=== PATIENT | male | born 1935 | race Caucasian/White ===

== ENCOUNTER 2018-10-23 10:50 | Emergency (ER) | payer OTHER ==
[2018-10-23] MEDS ORDERED: WATER FOR INJ,STERILE 10 ML ONE (11:52)
[2018-10-23] MEDS ORDERED: CEFTRIAXONE 1000 MG/VIAL ONE (11:52)
[2018-10-23] MEDS ORDERED: SMZ./TMP. 800/160 MG TABLET ONE (11:52)
--- NOTE | 2018-10-23 12:19 | ER ---
Nurse's Notes [facility] Name: Tj Lane Age: 83 yrs Sex: Male : 1935 Arrival Date: 10/23/2018 Time: 10:56 Bed 15 Private MD: Miguelito Whitaker V Diagnosis: Cellulitis of face Presentation: 10/23 11:11 Presenting complaint: Patient states: dental pain and redness/ swelling to R side of ss face that began 2-3 days ago. Transition of care: patient was not received from another setting of care. Onset of symptoms was October 20, 2018. Risk Assessment: Do you want to hurt yourself or someone else? Patient reports no desire to harm self or others. Initial Sepsis Screen: Does the patient have a suspected source of infection? Yes: Other: dental/ skin. Initial Sepsis Screen: Does the patient meet any 2 criteria? No. Patient's initial sepsis screen is negative. Care prior to arrival: None. 11:11 Method Of Arrival: Ambulatory ss 11:11 Acuity: DMITRY 3 ss Triage Assessment: 11:15 Headache History: The patient has had previous headaches and this one is similar to tw2 previous episodes. General: Appears in no apparent distress. slender, well groomed, Behavior is calm, cooperative, appropriate for age. Pain: Complains of pain in face and mouth Pain currently is 8 out of 10 on a pain scale. Pain began 2-3 days ago. Also complains of no other associated symptoms. Neuro: Level of Consciousness is awake, alert, obeys commands, Oriented to person, place, time, situation. Historical: - Allergies: 11:13 No Known Allergies; ss - Immunization history:: Adult Immunizations up to date. - Social history:: Smoking status: Patient/guardian denies using tobacco. - Ebola Screening: : Patient denies exposure to infectious person Patient denies travel to an Ebola-affected area in the 21 days before illness onset. - Family history:: not pertinent. - Hospitalizations: : No recent hospitalization is reported. Screenin:07 Abuse screen: Denies threats or abuse. Nutritional screening: No deficits noted. tw2 Tuberculosis screening: No symptoms or risk factors identified. Fall Risk Secondary diagnosis (15 points) impaired mobility. Assessment: 11:13 Reassessment: provider at bedside at this time. tw2 11:16 General: Appears in no apparent distress. Behavior is calm, cooperative, appropriate tw2 for age. Pain: Complains of pain in mouth face teeth. Neuro: Level of Consciousness is awake, alert, obeys commands, Oriented to person, place, time, situation. Cardiovascular: Heart tones S1 S2 Patient's skin is warm and dry. Respiratory: Airway is patent Respiratory effort is even, unlabored, Respiratory pattern is regular, symmetrical, Breath sounds are clear bilaterally. GI: No signs and/or symptoms were reported involving the gastrointestinal system. Abdomen is flat, non-distended, Bowel sounds present X 4 quads. : No signs and/or symptoms were reported regarding the genitourinary system. EENT: Reports dental pain and face swelling for 3 days now. Derm: No signs and/or symptoms reported regarding the dermatologic system. Musculoskeletal: Range of motion: intact in all extremities. 12:31 Reassessment: Patient appears in no apparent distress at this time. No changes from tw2 previously documented assessment. Patient and/or family updated on plan of care and expected duration. Pain level reassessed. Patient is alert, oriented x 3, equal unlabored respirations, skin warm/dry/pink. Vital Signs: 11:13 BP 135 / 75; Pulse 87; Resp 18; Temp 98.9(O); Pulse Ox 95% on R/A; Weight 72.57 kg; Height 5 ft. 6 in. (167.64 cm); Pain 8/10; 12:31 BP 155 / 71; Pulse 79; Resp 17; Pulse Ox 96% on R/A; tw2 11:13 Body Mass Index 25.82 (72.57 kg, 167.64 cm) ED Course: 10:56 Patient arrived in ED. rg4 10:56 Miguelito Whitaker MD is Private Physician. rg4 11:07 Delmi Trujillo RN is Primary Nurse. tw2 11:07 Arm band placed on. tw2 11:07 Bed in low position. Call light in reach. Adult w/ patient. tw2 11:12 Triage completed. 11:13 Dion Baker MD is Attending Physician. rn 12:18 Miguelito Whitaker MD is Referral Physician. rn 12:32 No provider procedures requiring assistance completed. Patient did not have IV access tw2 during this emergency room visit. Administered Medications: 11:43 Drug: Bactrim (160 mg-800 mg (DS) 1 tablet Route: PO; tw2 12:31 Follow up: Response: No adverse reaction tw2 11:45 Drug: Rocephin (cefTRIAXone) 1 grams Route: IM; Site: left gluteus; tw2 12:31 Follow up: Response: No adverse reaction tw2 Outcome: 12:19 Discharge ordered by . rn 12:32 Discharged to home ambulatory, with significant other. tw2 12:32 Condition: stable 12:32 Discharge instructions given to patient, significant other, Instructed on discharge instructions, follow up and referral plans. no drinking with medication, no driving heavy equipment, medication usage, Demonstrated understanding of instructions, follow-up care, medications, Prescriptions given X 3. 12:32 Patient left the ED. tw2 Signatures: Dion Baker MD MD rn Smirch, Shelby, RN RN ss Wise, Tara, RN RN tw2 Sussy Mackey rg4
--- NOTE | 2018-10-23 12:19 | EDPHYS ---
Physician Documentation [facility] Name: Tj Lane Age: 83 yrs Sex: Male : 1935 Arrival Date: 10/23/2018 Time: 10:56 Bed 15 Private MD: Miguelito Whitaker V ED Physician Dion Baker HPI: 10/23 11:29 This 83 yrs old Male presents to ER via Ambulatory with complaints of fever, rn facial infection. 11:30 the patient presents with a swollen area of the face. Description: erythematous. Onset: rn The symptoms/episode began/occurred 2 day(s) ago. Possible cause(s): unknown. Modifying factors: the symptoms are alleviated by nothing, the symptoms are aggravated by nothing. Severity of symptoms: At their worst the symptoms were mild, in the emergency department the symptoms are unchanged. The patient has not experienced similar symptoms in the past. REports has been having dental problems lately, feels like gums and teeth sore, no trauma, noticed swelling to right face, and subjective fever. . Historical: - Allergies: 11:13 No Known Allergies; ss - Immunization history:: Adult Immunizations up to date. - Social history:: Smoking status: Patient/guardian denies using tobacco. - Ebola Screening: : Patient denies exposure to infectious person Patient denies travel to an Ebola-affected area in the 21 days before illness onset. - Family history:: not pertinent. - Hospitalizations: : No recent hospitalization is reported. ROS: 11:30 Constitutional: + fever Eyes: Negative for injury, pain, redness, and discharge, ENT: + rn right facial swelling and redness, + dental pain Neck: Negative for injury, pain, and swelling, Cardiovascular: Negative for chest pain, palpitations, and edema, Respiratory: Negative for shortness of breath, cough, wheezing, and pleuritic chest pain, Abdomen/GI: Negative for abdominal pain, nausea, vomiting, diarrhea, and constipation, MS/Extremity: Negative for injury and deformity, Neuro: Negative for headache, weakness, numbness, tingling, and seizure. Exam: 11:30 Constitutional: This is a well developed, well nourished patient who is awake, alert, rn and in no acute distress. Head/Face: Normocephalic, + right facial mild swelling and erythema with blanching, no fluctuance, moderate swelling under right eye Eyes: Pupils equal round and reactive to light, extra-ocular motions intact. No pain with EOM. ENT: Nares patent. No nasal discharge, no septal abnormalities noted. Oropharynx with no redness, swelling, or masses, exudates, or evidence of obstruction, uvula midline. Mucous membranes moist. +poor general dentition without obvious focal abscess or swelling. Respiratory: No increased work of breathing, no retractions or nasal flaring. Skin: Warm, dry MS/ Extremity: Pulses equal, no cyanosis. Neurovascular intact. Full, normal range of motion. Equal circumference. Neuro: Awake and alert, GCS 15, oriented to person, place, time, and situation. Cranial nerves II-XII grossly intact. Motor strength 5/5 in all extremities. Sensory grossly intact. Cerebellar exam normal. Normal gait. Vital Signs: 11:13 BP 135 / 75; Pulse 87; Resp 18; Temp 98.9(O); Pulse Ox 95% on R/A; Weight 72.57 kg; ss Height 5 ft. 6 in. (167.64 cm); Pain 8/10; 12:31 BP 155 / 71; Pulse 79; Resp 17; Pulse Ox 96% on R/A; tw2 11:13 Body Mass Index 25.82 (72.57 kg, 167.64 cm) ss MDM: 11:13 Patient medically screened. rn 12:18 Differential diagnosis: cellulitis. Data reviewed: vital signs, nurses notes, and as a rn result, I will discharge patient. Counseling: I had a detailed discussion with the patient and/or guardian regarding: the historical points, exam findings, and any diagnostic results supporting the discharge/admit diagnosis, the need for outpatient follow up, to return to the emergency department if symptoms worsen or persist or if there are any questions or concerns that arise at home. Special discussion: I discussed with the patient/guardian in detail that at this point there is no indication for admission to the hospital. It is understood, however, that if the symptoms persist or worsen the patient needs to return immediately for re-evaluation. Based on the history and exam findings, there is no indication for further emergent testing or inpatient evaluation. I discussed with the patient/guardian the need to see a dentist for further evaluation of the symptoms. Administered Medications: 11:43 Drug: Bactrim (160 mg-800 mg (DS) 1 tablet Route: PO; tw2 12:31 Follow up: Response: No adverse reaction tw2 11:45 Drug: Rocephin (cefTRIAXone) 1 grams Route: IM; Site: left gluteus; tw2 12:31 Follow up: Response: No adverse reaction tw2 Disposition: 10/23/18 12:19 Discharged to Home. Impression: Cellulitis of face. - Condition is Stable. - Discharge Instructions: Cellulitis, Adult, Preseptal Cellulitis, Adult. - Prescriptions for Keflex 500 mg Oral Capsule - take 1 capsule by ORAL route every 8 hours for 10 days; 30 capsule. Tylenol- Codeine #3 300-30 mg Oral Tablet - take 1 tablet by ORAL route every 6 hours As needed; 20 tablet. Bactrim DS 800- 160 mg Oral Tablet - take 1 tablet by ORAL route every 12 hours for 10 days; 20 tablet. - Medication Reconciliation Form, Thank You Letter, Antibiotic Education, Prescription Opioid Use form. - Follow up: Miguelito Whitaker MD; When: As needed; Reason: Recheck today's complaints, Re-evaluation by your physician. - Problem is new. - Symptoms have improved. Signatures: Dion Baker MD MD rn Smirch, Shelby, RN RN Delmi Trujillo RN RN tw2 Corrections: (The following items were deleted from the chart) 12:32 12:19 10/23/2018 12:19 Discharged to Home. Impression: Cellulitis of face. Condition is tw2 Stable. Forms are Medication Reconciliation Form, Thank You Letter, Antibiotic Education, Prescription Opioid Use. Follow up: Miguelito Whitaker; When: As needed; Reason: Recheck today's complaints, Re-evaluation by your physician. Problem is new. Symptoms have improved. rn
== END 2018-10-23 12:32 | disposition home or self-care (01) ==
LOC: ER 10:50
DX: L03.211 Cellulitis of face (principal)
CPT/HCPCS: 96372; 99283

== ENCOUNTER 2022-05-10 23:45 | Inpatient (IN) | payer OTHER ==
[2022-05-11 00:33] LABS: Absolute Lymphocytes (CBC) 1.9 K/uL (0.7-4.9); MCV 82.4 fL (80-100); MPV 8.1 fL (7.6-11.3); RBC Red Blood Cell Count 4.49 M/uL (4.33-5.43)
[2022-05-11] MEDS ORDERED: D10W 250 ML IV ONE ×2 (00:45→03:34)
[2022-05-11 01:05] LABS: Albumin 3.3 g/dL (3.4-5.0); Bilirubin Total 0.2 mg/dL (0.2-1.0); Potassium 3.7 mmol/L (3.5-5.1); Protein, Total 7.2 g/dL (6.4-8.2); Troponin High Sensitivity 29.3 pg/mL (<58.9)
[2022-05-11] MEDS ORDERED: OCTREOTIDE ACETATE 100 MCG/ML ONE (01:20)
[2022-05-11] MEDS ORDERED: D5 0.2 NS 500 ML IV ONE (01:20)
--- NOTE | 2022-05-11 01:56 | ER ---
Nurse's Notes [facility] Name: Tj Lane Age: 87 yrs Sex: Male : 1935 Arrival Date: 05/10/2022 Time: 23:46 Bed 25 Private MD: Diagnosis: Other seizures;Hypoglycemia, unspecified Presentation: 05/10 23:47 Chief complaint: EMS states: they were toned out twice today for hypoglycemia the first bb time pt's BGL in the 40s they gave D10 but then it went down again to 28 they gave D10 again and it went to 179 pt also c/o leg pain. Coronavirus screen: At this time, the client does not indicate any symptoms associated with coronavirus-19. Ebola Screen: No symptoms or risks identified at this time. Initial Sepsis Screen: Does the patient meet any 2 criteria? No. Patient's initial sepsis screen is negative. Does the patient have a suspected source of infection? No. Patient's initial sepsis screen is negative. Risk Assessment: Do you want to hurt yourself or someone else? Patient reports no desire to harm self or others. Onset of symptoms was May 10, 2022. 23:47 Method Of Arrival: EMS: [facility] bb 23:47 Acuity: DMITRY 3 bb 23:53 Care prior to arrival: Medication(s) given: D10 IV initiated. 20 GA, in the left bb forearm. Historical: - Allergies: 23:51 No Known Allergies; bb - Home Meds: 23:51 glimepiride 2 mg Oral tab 1 tab once daily [Active]; amlodipine 10 mg tab 1 tab once bb daily [Active]; lisinopril 20 mg Oral tab 1 tab once daily [Active]; - PMHx: 23:51 Hypertensive disorder; Diabetes mellitus; bb - Immunization history:: Client reports receiving the 2nd dose of the Covid vaccine. - Social history:: Smoking status: Patient denies any tobacco usage or history of. - Family history:: not pertinent. Screenin:50 Abuse screen: Denies threats or abuse. Nutritional screening: No deficits noted. jj7 Tuberculosis screening: No symptoms or risk factors identified. 23:50 [facility] ED Fall Risk Assessment (Adult) History of falling in the last 3 months, jj7 including since admission No falls in past 3 months (0 pts) Confusion or Disorientation Yes (5 pts) Intoxicated or Sedated No (0 pts) Impaired Gait Yes (1 pt) Mobility Assist Device Used No (0 pt) Altered Elimination No (0 pt) Score/Fall Risk Level 3 or more points = High Risk Oriented to surroundings, Maintained a safe environment, Educated pt \T\ family on fall prevention, incl call for assistance when getting out of bed, Assessed \T\ reinforced patient's understanding of fall precautions, Provided non-skid footwear. Assessment: 23:50 General: Appears in no apparent distress. uncomfortable, unkempt, Behavior is calm, jj7 cooperative, appropriate for age. Pain: Complains of pain in right leg and left leg Pain Quality of pain is described as aching, tender. 05/11 00:46 Reassessment: PT HAVING IN BED SHAKING AND APPEARS TO BE HAVING A SZ. MD SPARKLE ramirez INFORMED. BLOOD SUGAR CHECKED AND SHOWS LOW. DEXTROSE 10% GIVEN IV BOLUS IMMEDIATELY. 2 MINUTES LATER PT AWAKE AND SPEAKING. 01:47 Reassessment: PT CONFUSED AND THINKS HE IS AT HOME. CALLING FOR HIS AND SPEAKING j IF HE IS AT HOME. PT REORIENTATED AND INFORMED HE IS AT THE HOSPITAL. PT A\T\OX3. 02:45 Reassessment: PT TRYING TO SLIP OUT THE BED. PT THINKS HE IS AT HOME. PT REORIENTATED [facility] TO HOSPITAL AND READJUSTED IN BED FOR COMFORT. LEGS OF BED RAISED TO PREVENT PT FROM SLIPPING OUT AND FALLING. 03:30 Reassessment: BLOOD GLUCOSE 43. PT IS AWAKE AND TALKING. NO DISTRESS NOTED. MD james VILLAGRAN INFORMED. ORDERS TO INCREASE D5 1/2 NS FROM 75ML/HR TO 150 ML/HR. ORDER TO INFUSE ANOTHER D10 BOLUS. 04:15 Reassessment: BLOOD GLUCOSE 154. [facility] 04:58 Reassessment: PT TRYING TO CLIMB OUT OF THE BED AGAIN. PT READJUSTED IN BED FOR j COMFORT. PT REORIENTED TO HOSPITAL SETTING. 05:10 Reassessment: REPORT GIVEN TO [facility] ICU. [facility] Vital Signs: 05/10 23:47 BP 144 / 90; Pulse 104; Resp 20 S; Temp 98.8(O); Pulse Ox 93% on R/A; Weight 70.76 kg bb (R); Height 5 ft. 7 in. (170.18 cm) (R); Pain 7/10; 05/11 01:13 BP 135 / 86; Pulse 120; Resp 21; Pulse Ox 96% ; jj7 02:17 BP 154 / 84; Pulse 112; Resp 19; Pulse Ox 93% ; Pain 0/10; jj7 03:12 BP 153 / 73; Pulse 104; Resp 17; Pulse Ox 92% ; Pain 0/10; jj7 04:15 BP 130 / 86; Pulse 106; Resp 19; Pulse Ox 91% ; jj7 05:00 BP 133 / 78; Pulse 101; Resp 18; Pulse Ox 93% ; Pain 0/10; jj7 05/10 23:47 Body Mass Index 24.43 (70.76 kg, 170.18 cm) bb ED Course: 05/10 23:46 Patient arrived in ED. bb 23:47 Joselo Villagran MD is Attending Physician. rt 23:50 Patient has correct armband on for positive identification. Bed in low position. Call [facility] light in reach. Side rails up X2. 23:51 Triage completed. bb 23:51 Arm band placed on Patient placed in an exam room, on a stretcher, on pulse oximetry. bb 23:52 Lorna Mcdaniel RN is Primary Nurse. j7 05/11 00:17 Chest Single View XRAY In Process Unspecified. EDMS 00:20 Inserted saline lock: 20 gauge in left forearm, using aseptic technique. jj7 00:26 CMP Sent. jj7 00:26 CBC with Diff Sent. jj7 00:26 Troponin High Sensitivity Sent. jj7 01:12 UA MICROSCOPIC Sent. jj7 01:53 SARS RAPID Sent. la1 01:54 Tomasz Ayon MD is Hospitalizing Provider. rt 03:11 Placed in gown. Seizure precautions initiated. NON SLIP SOCKS APPLIED. jj7 05:45 No provider procedures requiring assistance completed. Patient admitted, IV remains in j7 place. Administered Medications: 01:42 Discontinued: D5 -1/4 NS 1000 ml IV at 75 ml/hr continuous la1 00:46 Drug: D10 in Water [2 mL/kg] 250 ml Route: IVP; Site: left forearm; jj7 01:03 Follow up: Response: Blood sugar is elevated jj7 01:27 Drug: Octreotide 50 mcg Route: Sub-Q; Site: right lower abdomen; jj7 01:27 Drug: D5 -1/4 NS 1000 ml Route: IV; Rate: 75 ml/hr; Site: left forearm; jj7 02:05 Drug: D5-1/2 NS 1000 ml Route: IV; Rate: 75 ml/hr; Site: left forearm; jj7 03:36 Follow up: Rate change 150 ml/hr jj7 03:32 Drug: D10 in Water [4ml/kg] 250 ml Route: IVP; Site: left forearm; jj7 03:54 Follow up: Response: Blood sugar is elevated jj7 03:32 Drug: D5 -1/4 NS 1000 ml Route: IV; Rate: 150 ml/hr; Site: left forearm; jj7 05:45 Follow up: IV Status: Infusion continued upon admission jj7 Medication: 05/10 23:50 VIS not applicable for this client. jj7 Outcome: 05/11 01:55 Decision to Hospitalize by Provider. rt 05:40 Admitted to ICU accompanied by nurse, accompanied by tech, via stretcher, Report called jj7 to [facility] 05:40 Condition: improved 06:01 Patient left the ED. jj7 Signatures: Dispatcher [employer] EDMarianela Shields, RN Anjel Gunter, CHRISTIAN COUNSELOR-C CHRISTIAN COUNSELOR-Shelley1 Lorna Mcdaniel RN RN jj7 Joselo Villagran MD MD rt Corrections: (The following items were deleted from the chart) 02:04 01:57 D5-1/2 NS 1000 ml IV at 75 ml/hr in left forearm la1 la1
--- NOTE | 2022-05-11 01:56 | EDPHYS ---
Physician Documentation [facility] – [place], [place] Name: Tj Lane Age: 87 yrs Sex: Male : 1935 Arrival Date: 05/10/2022 Time: 23:46 Bed 25 Private MD: ED Physician Joselo Almazan HPI: 05/11 01:16 This 87 yrs old Unknown Male presents to ER via EMS with complaints of Hypoglycemia. rt 01:16 Onset: The symptoms/episode began/occurred at an unknown time. Severity of symptoms: At rt their worst the symptoms were severe. Patient with history of diabetes, currently taking a sulfonylurea presents to the ED with hypoglycemia. This causes an altered mental status. EMS ran on the patient twice today, he refused on his initial visit. Denies other aggravating or alleviating factors. States that he ate dinner tonight.. Historical: - Allergies: 05/10 23:51 No Known Allergies; bb - Home Meds: 23:51 glimepiride 2 mg Oral tab 1 tab once daily [Active]; amlodipine 10 mg tab 1 tab once bb daily [Active]; lisinopril 20 mg Oral tab 1 tab once daily [Active]; - PMHx: 23:51 Hypertensive disorder; Diabetes mellitus; bb - Immunization history:: Client reports receiving the 2nd dose of the Covid vaccine. - Social history:: Smoking status: Patient denies any tobacco usage or history of. - Family history:: not pertinent. ROS: 05/11 01:16 Constitutional: Negative for fever, chills, and weight loss, Eyes: Negative for injury, rt pain, redness, and discharge, ENT: Negative for injury, pain, and discharge, Neck: Negative for injury, pain, and swelling, Cardiovascular: Negative for chest pain, palpitations, and edema, Respiratory: Negative for shortness of breath, cough, wheezing, and pleuritic chest pain, Abdomen/GI: Negative for abdominal pain, nausea, vomiting, diarrhea, and constipation, Back: Negative for injury and pain, MS/Extremity: Negative for injury and deformity, Skin: Negative for injury, rash, and discoloration, Neuro: Negative for headache, weakness, numbness, tingling, and seizure, Psych: Negative for depression, anxiety, suicide ideation, homicidal ideation, and hallucinations. Endocrine: Positive for hypoglycemia. Exam: 01:16 Constitutional: This is a well developed, well nourished patient who is awake, alert, rt and in no acute distress. Head/Face: Normocephalic, atraumatic. Eyes: Pupils equal round and reactive to light, extra-ocular motions intact. Lids and lashes normal. Conjunctiva and sclera are non-icteric and not injected. Cornea within normal limits. Periorbital areas with no swelling, redness, or edema. ENT: Nares patent. No nasal discharge, no septal abnormalities noted. Tympanic membranes are normal and external auditory canals are clear. Oropharynx with no redness, swelling, or masses, exudates, or evidence of obstruction, uvula midline. Mucous membranes moist. Neck: Trachea midline, no thyromegaly or masses palpated, and no cervical lymphadenopathy. Supple, full range of motion without nuchal rigidity, or vertebral point tenderness. No Meningismus. Chest/axilla: Normal chest wall appearance and motion. Nontender with no deformity. No lesions are appreciated. Cardiovascular: Regular rate and rhythm with a normal S1 and S2. No gallops, murmurs, or rubs. Normal PMI, no JVD. No pulse deficits. Respiratory: Lungs have equal breath sounds bilaterally, clear to auscultation and percussion. No rales, rhonchi or wheezes noted. No increased work of breathing, no retractions or nasal flaring. Back: No spinal tenderness. No costovertebral tenderness. Full range of motion. Skin: Warm, dry with normal turgor. Normal color with no rashes, no lesions, and no evidence of cellulitis. MS/ Extremity: Pulses equal, no cyanosis. Neurovascular intact. Full, normal range of motion. Neuro: Awake and alert, GCS 15, oriented to person, place, time, and situation. Cranial nerves II-XII grossly intact. Motor strength 5/5 in all extremities. Sensory grossly intact. Cerebellar exam normal. Normal gait. Psych: Awake, alert, with orientation to person, place and time. Behavior, mood, and affect are within normal limits. 01:16 Abdomen/GI: Left inguinal hernia, no abdominal tenderness, easily reducible.. Vital Signs: 05/10 23:47 BP 144 / 90; Pulse 104; Resp 20 S; Temp 98.8(O); Pulse Ox 93% on R/A; Weight 70.76 kg bb (R); Height 5 ft. 7 in. (170.18 cm) (R); Pain 7/10; 05/11 01:13 BP 135 / 86; Pulse 120; Resp 21; Pulse Ox 96% ; jj7 02:17 BP 154 / 84; Pulse 112; Resp 19; Pulse Ox 93% ; Pain 0/10; jj7 03:12 BP 153 / 73; Pulse 104; Resp 17; Pulse Ox 92% ; Pain 0/10; jj7 04:15 BP 130 / 86; Pulse 106; Resp 19; Pulse Ox 91% ; jj7 05:00 BP 133 / 78; Pulse 101; Resp 18; Pulse Ox 93% ; Pain 0/10; jj7 05/10 23:47 Body Mass Index 24.43 (70.76 kg, 170.18 cm) bb MDM: 05/10 23:49 Patient medically screened. rt 05/11 01:19 Differential Diagnosis hypoGlycemia, sepsis. Data reviewed: vital signs, nurses notes, rt lab test result(s), EKG, radiologic studies. ED course: Presents to the ED with recurrent hypoglycemia on a sulfonylurea, no evidence of sepsis, infectious etiology. The patient had a seizure, associated with hypoglycemia, resolving with IV dextrose. The patient has no other significant lab abnormalities, will be admitted for further care.. 02:42 ED course: The phone call to Dr. Whitaker, went straight to voicemail, the mailbox was rt full, unable to leave message, text messages left, will attempt to contact again in the morning.. 05/10 23:59 Order name: CBC with Diff; Complete Time: 01:00 rt 05/10 23:59 Order name: CMP; Complete Time: 01:40 rt 05/10 23:59 Order name: UA MICROSCOPIC; Complete Time: 03:49 rt 05/10 23:59 Order name: Troponin High Sensitivity; Complete Time: 01:40 rt 05/11 00:56 Order name: Glucose, Ancillary Testing; Complete Time: 01:00 EDMS 05/11 01:03 Order name: SARS RAPID; Complete Time: 03:49 la1 05/10 23:59 Order name: Chest Single View XRAY rt 05/11 01:29 Order name: Glucose, Ancillary Testing; Complete Time: 01:40 EDMS 05/11 03:42 Order name: Glucose, Ancillary Testing; Complete Time: 03:49 EDMS 05/11 04:21 Order name: Urine Dipstick-Ancillary; Complete Time: 04:21 EDMS 05/11 04:27 Order name: Glucose, Ancillary Testing; Complete Time: 04:50 EDMS 05/10 23:59 Order name: EKG; Complete Time: 00:00 rt 05/10 23:59 Order name: EKG - Nurse/Tech rt 05/10 23:59 Order name: Urine Dipstick-Ancillary (obtain specimen) rt 05/11 01:02 Order name: Misc. Order: hourly accuchecks la1 05/11 01:02 Order name: Seizure Precautions; Complete Time: 01:11 la1 Administered Medications: 01:42 Discontinued: D5 -1/4 NS 1000 ml IV at 75 ml/hr continuous la1 00:46 Drug: D10 in Water [2 mL/kg] 250 ml Route: IVP; Site: left forearm; jj7 01:03 Follow up: Response: Blood sugar is elevated jj7 01:27 Drug: Octreotide 50 mcg Route: Sub-Q; Site: right lower abdomen; jj7 01:27 Drug: D5 -1/4 NS 1000 ml Route: IV; Rate: 75 ml/hr; Site: left forearm; jj7 02:05 Drug: D5-1/2 NS 1000 ml Route: IV; Rate: 75 ml/hr; Site: left forearm; jj7 03:36 Follow up: Rate change 150 ml/hr jj7 03:32 Drug: D10 in Water [4ml/kg] 250 ml Route: IVP; Site: left forearm; jj7 03:54 Follow up: Response: Blood sugar is elevated jj7 03:32 Drug: D5 -1/4 NS 1000 ml Route: IV; Rate: 150 ml/hr; Site: left forearm; jj7 05:45 Follow up: IV Status: Infusion continued upon admission jj7 Disposition Summary: 05/11/22 01:55 Hospitalization Ordered Hospitalization Status: Inpatient Admission rt Provider: Tomasz Ayon rt Location: Intensive Care Unit rt Condition: Critical rt Problem: new rt Symptoms: have improved rt Bed/Room Type: Standard rt Room Assignment: 8-(05/11/22 04:37) cg Diagnosis - Other seizures rt - Hypoglycemia, unspecified rt Forms: - Medication Reconciliation Form rt - SBAR form rt Critical care time excluding procedures: 01:19 Critical care time: Bedside Care: 30 minutes, Consultation: 5 minutes. Total time: 35 rt minutes Signatures: Dispatcher [employer] Marianela Bobo RN RN bb Attema, Lee, BUSINESS CONTINUITY PLANNING DIRECTOR-C BUSINESS CONTINUITY PLANNING DIRECTOR-Cla1 Richa Mackey RN RN cg Johnson, Juwairiyah, RN RN jj7 Joselo Almazan MD MD rt Corrections: (The following items were deleted from the chart) 04:37 01:55 rt cg
[2022-05-11] MEDS ORDERED: D5 0.45 NS 1,000 ML IV ONE (01:58)
[2022-05-11 02:21] LABS: Calcium Oxalate Crystals- Ur Few /HPF (None Seen); Urine Bacteria <20 /HPF (<20); Urine RBC <5 /HPF (None Seen)
[2022-05-11 02:27] LABS: SARS-CoV-2 Antigen Rapid Res Positive (Negative)
[2022-05-11 04:21] LABS: Urine Blood 1+ (Negative); Urine Glucose Negative (Negative); Urine Protein 3+ (Negative); Urine pH 5.5 (5.0-7.0)
[2022-05-11] MEDS ORDERED: D5.45NS W/KCL 20MEQ 1,000 ML IV SCH (05:29)
[2022-05-11 07:36] LABS: Specific Gravity 1.011 (1.005-1.030); Urine Bacteria None Seen /HPF (<20); Urine Bilirubin NEGATIVE (Negative); Urine Blood 3+ (Negative); Urine Clarity Clear (Clear); Urine Color Colorless (Yellow); Urine Crystals Unidentified Few /HPF (None Seen); Urine Glucose 1+ (Negative); Urine Mucus Slight /HPF (None Seen); Urine Protein 2+ (Negative); Urine RBC <5 /HPF (None Seen); Urine Urobilinogen Normal (Normal); Urine pH 5.5 (5.0-7.0)
[2022-05-11 09:23] LABS: Blood Gas Oxyhemoglobin 84.6 % (94-97); Blood O2 Saturation 85.5 % (92-98.5)
[2022-05-11] MEDS ORDERED: HALOPERIDOL LACT 5 MG/ML INJ IV PRN (12:45)
--- NOTE | 2022-05-11 12:53 | P.HP ---
Certification for Inpatient Patient admitted to: Inpatient With expected LOS: >2 Midnights Practitioner: I am a practitioner with admitting privileges, knowledge of patient current condition, hospital course, and medical plan of care. Services: Services provided to patient in accordance with Admission requirements found in Title 42 Section 412.3 of the Code of Federal Regulations Patient History Date of Service: 05/11/22 Reason for admission: LOW GLUCOSE History of Present Illness: GLUCOSE GOT LOW AND THEY CAME HERE. CONFUSED WITH IT. HE HAD COUGH AND RASPY BREATH 3 DAYS. HE DID NOT EAT WELL FOR 3 DAYS. HE IS AGITATED AND CONFUSED TODAY. HE IS IN ICU. Allergies No Known Allergies Allergy (Verified 08/23/19 12:43) Home medications list reviewed: Yes Home Medications: Amlodipine [Norvasc] 10 mg PO DAILY 09/07/19 Glimepiride 2 mg PO DAILY 07/08/21 Lisinopril [Zestril] 20 mg PO DAILY 07/08/21 - Past Medical/Surgical History Has patient received pneumonia vaccine in the past: Yes Diabetic: Yes -: Neuropathy -: DM -: HTN -: GERD -: Bilateral Blindness -: left heel debridement - Social History Smoking Status: Never smoker Alcohol use: No CD- Drugs: No Caffeine use: Yes Place of Residence: Home Review of Systems 10-point ROS is otherwise unremarkable General: Weakness Physical Examination - Vital Signs Temperature: 99.7 F Blood Pressure: 142/71 Pulse: 85 Respirations: 25 Pulse Ox (%): 96 - Physical Exam General: Oriented x2, Mild distress, Confused HEENT: Atraumatic, PERRLA, Mucous membr. moist/pink, EOMI, Sclerae nonicteric Neck: Supple, 2+ carotid pulse no bruit, No LAD, Without JVD or thyroid abnormality Respiratory: Clear to auscultation bilaterally, Normal air movement Cardiovascular: Regular rate/rhythm, Normal S1 S2 Gastrointestinal: Normal bowel sounds, No tenderness Musculoskeletal: No tenderness Integumentary: No rashes Neurological: Other Lymphatics: No axilla or inguinal lymphadenopathy - Studies Laboratory Data (last 24 hrs) 05/11/22 00:15: Sodium 138, Potassium 3.7, BUN 40 H, Creatinine 1.22, Glucose 23 L*, Total Bilirubin 0.2, AST 44 H, ALT 24, Alkaline Phosphatase 94 05/11/22 00:15: WBC 12.40 H, Hgb 12.3 L, Hct 37.0 L, Plt Count 195 Assessment and Plan - Problems (Diagnosis) (1) COVID Current Visit: Yes Status: Acute Plan: DR. ANTONIO IS CONSULTED. HE WILL DECIDE ON MEDS. (2) Hypoglycemia Current Visit: Yes Status: Acute Plan: CURRENTLY STABLE. (3) Confused Current Visit: Yes Status: Acute Plan: SEEMS FROM VIRAL INFECTION AND BEING IN ICU. ADD THIAMIN DAILY. ADD HALDOL PRN CT CHEST ORDERED TO RULE OUT PNEUMONIA HE IS MILD HYPOXIC. AMS IS FROM ACUTE ILLNESS RELATED DELIRUIM. I CALLED TO EXPLAIN. - Advance Directives Does patient have a Living Will: No Does patient have a Durable POA for Healthcare: No
[2022-05-11] MEDS: D5.45NS W/KCL 20MEQ 1,000 ML IV SCH ×2 (13:00→18:15)
--- NOTE | 2022-05-11 13:35 | RAD REPORT ---
EXAM DESCRIPTION: CT - Chest For Pe Angio - 05/11/2022 1:25 pm CLINICAL HISTORY: HYPOXIA COMPARISON: No comparisons TECHNIQUE: Dynamically enhanced axial 3 mm thick images of the chest were obtained during administra tion of <100> mL Isovue 370 IV contrast. Coronal and oblique reconstruction images were generated and reviewed. Exam utilizes a protocol for optimal evaluation of pulmonary arterial tree. Maximum intensity projections 3D imaging was utilized All CT scans are performed using dose optimization technique as appropriate and may include automated exposure control or mA/KV adjustment according to patient size. FINDINGS: Chest Wall: No suspicious thyroid nodules or pathologic lymphadenopathy. Lungs: Bilateral nodular ground-glass opacities predominantly in the lower lungs bilaterally. Pleura: Small pleural effusions. Mediastinum/yomaira: No pathologic lymphadenopathy. Pulmonary arteries/Aorta: No filling defect identified. No aortic aneurysm. Heart: No significant pericardial effusion. Normal heart size. Multi also coronary artery disease. Upper abdomen: No acute abnormality. Bones: No acute abnormality. IMPRESSION: Negative for pulmonary embolism. Bilateral lower lung airspace disease concerning for br onchopneumonia.
--- NOTE | 2022-05-11 14:12 | RAD REPORT ---
EXAM DESCRIPTION: Chest Single View 05/11/2022 12:23 AM PLATFORM INSPECTOR CLINICAL HISTORY: 87 years, Male, hypoglycemia COMPARISON: None. FINDINGS: Single view of the chest was obtained portable. No prior films are available for compariso n. The cardiomediastinal silhouette demonstrate to be unremarkable. The heart is not enlarged. The th oracic aorta is unremarkable. The pulmonary vasculature is normal distribution. Costophrenic angles a re sharp. No areas of consolidation or masses are seen. The rest of the soft tissue and bony stru ctures demonstrate to be unremarkable. IMPRESSION: No acute cardiopulmonary disease seen. Electronically signed by: George Chaparro MD 05/11/2022 12:23 AM PLATFORM INSPECTOR Due to temporary technical issues with the PACS/Fluency reporting system, reports are being signed by the in house radiologists without review as a courtesy to insure prompt reporting. The interpreting radiologist is fully responsible for the content of the report.
[2022-05-11] MEDS ORDERED: ENOXAPARIN 30 MG/0.3 ML SQ SCH (17:00)
[2022-05-11] MEDS ORDERED: TRAZODONE 50 MG TABLET PO PRN (19:51)
[2022-05-12 05:33] VITALS: BMI 23.6
[2022-05-12] MEDS: CEFTRIAXONE 1,000 MG in NA CHLORIDE 0.9% 50 ML IVPB SCH ×2 (06:35→09:00)
[2022-05-12] MEDS: ACETAMINOPHEN 325 MG TABLET PO PRN ×2 (07:23→14:41)
[2022-05-12] MEDS: AZITHROMYCIN IV 500 MG in NA CHLORIDE 0.9% 250 ML IVPB SCH ×2 (08:25→09:00)
[2022-05-12] MEDS ORDERED: CEFTRIAXONE 1000 MG/VIAL ONE (08:26)
[2022-05-12] MEDS ORDERED: AMLODIPINE 10 MG TAB PO SCH (09:00)
[2022-05-12] MEDS ORDERED: THIAMINE 200 MG/2 ML INJ IVP SCH (09:00)
--- NOTE | 2022-05-12 12:09 | P.CNS ---
Date of Consult: 05/12/22 Reason for Consult: Pneumonia Chief Complaint: Pneumonia History of Present Illness: Patient is 87 years of age admitted to the hospital with bilateral pneumonia having symptoms for the past 3 days cough shortness of breath productive cough tested positive for COVID although he denies any fever prior history of pulmonary problem not smoke Allergies No Known Allergies Allergy (Verified 08/23/19 12:43) Home Medications: Amlodipine [Norvasc*] 10 mg PO DAILY 09/07/19 Amox/Clavulanate [Augmentin 500-125 mg Tab] 500 mg PO BID #14 tab 05/12/22 Quetiapine [Seroquel*] 50 mg PO BEDTIME tab 05/12/22 Repaglinide [Prandin] 0.5 mg PO BID #60 tab 05/12/22 - Past Medical/Surgical History Diabetic: Yes -: Neuropathy -: DM -: HTN -: GERD -: Bilateral Blindness -: left heel debridement - Social History Alcohol use: No CD- Drugs: No Caffeine use: Yes Place of Residence: Home Review of Systems 10-point ROS is otherwise unremarkable General: Weakness Respiratory: Cough, Shortness of Breath Physical Examination Temp Pulse Resp BP Pulse Ox 98.7 F 90 26 H 134/66 99 05/12/22 04:00 05/12/22 07:24 05/12/22 05:00 05/12/22 07:24 05/12/22 05:00 General: Alert, Oriented x3 Respiratory: Clear to auscultation bilaterally, Crackles/rales (Crackles at the bases) Cardiovascular: No edema, Regular rate/rhythm, Normal S1 S2 - Problems (1) Pneumonia Current Visit: Yes Status: Acute Plan: Patient is 87 years of age admitted with bilateral lower lobe pneumonia appears to be consolidation rather than a COVID-pneumonia his white count is elevated start patient on conventional treatment with Rocephin and Zithromax for coronavirus is not indicated at this time is mildly hypoxic patient was hypoglycemic on admission admission is currently doing well hypoglycemia is probably secondary to sulfonylurea Qualifiers: Pneumonia type: due to unspecified organism Lung location: unspecified part of lung
[2022-05-12 12:31] VITALS: TEMP 98.5
--- NOTE | 2022-05-12 12:51 | P.DS ---
Admission Date: 05/11/22 Discharge Date: 05/12/22 Disposition: ROUTINE DISCHARGE Discharge Condition: FAIR Reason for Admission: Pneumonia - Problems (1) COVID Current Visit: Yes Status: Acute (2) Hypoglycemia Current Visit: Yes Status: Acute (3) Confused Current Visit: Yes Status: Acute Brief History of Present Illness: GLUCOSE GOT LOW AND THEY CAME HERE. CONFUSED WITH IT. HE HAD COUGH AND RASPY BREATH 3 DAYS. HE DID NOT EAT WELL FOR 3 DAYS. HE IS AGITATED AND CONFUSED TODAY. HE IS IN ICU. Hospital Course: MR GERBER IS A DIABETIC WHO GOES TO [place] FOR HIS CARE. HE HAD COUGH, VIRAL SYNDROME, DID NOT EAT WELL BUT FAMILY KEPT ON GIVING HIM GLIMERPIDE WITHOUT CHECKING GLUCOSE. THIS IS WHY HIS GLUCOSE DROPPED LOW. HE IS FOUND TO HAVE COVID WITH MILD HYPOXIA. HOSPITAL DOES NOT CARRY ANY COVID RELATED MEDS. I SENT HIM HOME ON MOLNUPIRAVIR PAXLOVID MAY BE HARD TO TOLERATE FOR HIM. I ALSO CHANGED DM MEDS AND EXPLAINED LIKE BEFORE TO FAMILY THAT THEY MUST CHECK GLUCOSE DAILY BEFORE MEDS AND NOT GIVE MEDS IF GLUCOSE IS ALREADY LESS THAN 100 BEFORE FOOD. Vital Signs/Physical Exam: Temp Pulse Resp BP Pulse Ox 98.5 F 72 18 113/55 L 94 05/12/22 12:00 05/12/22 12:00 05/12/22 12:00 05/12/22 12:00 05/12/22 09:00 Laboratory Data at Discharge: WBC 12.40 K/uL (4.3-10.9) H 05/11/22 00:15 Hgb 12.3 g/dL (13.6-17.9) L 05/11/22 00:15 Hct 37.0 % (39.6-49.0) L 05/11/22 00:15 Plt Count 195 K/uL (152-406) 05/11/22 00:15 Sodium 138 mmol/L (136-145) 05/11/22 00:15 Potassium 3.7 mmol/L (3.5-5.1) 05/11/22 00:15 BUN 40 mg/dL (7-18) H 05/11/22 00:15 Creatinine 1.22 mg/dL (0.70-1.30) 05/11/22 00:15 Glucose 23 mg/dL (74-106) L* 05/11/22 00:15 Total Bilirubin 0.2 mg/dL (0.2-1.0) 05/11/22 00:15 AST 44 U/L (15-37) H 05/11/22 00:15 ALT 24 U/L (16-61) 05/11/22 00:15 Alkaline Phosphatase 94 U/L (45-117) 05/11/22 00:15 Home Medications: Amlodipine [Norvasc*] 10 mg PO DAILY 09/07/19 Amox/Clavulanate [Augmentin 500-125 mg Tab] 500 mg PO BID #14 tab 05/12/22 Quetiapine [Seroquel*] 50 mg PO BEDTIME tab 05/12/22 Repaglinide [Prandin] 0.5 mg PO BID #60 tab 05/12/22 New Medications: Amox/Clavulanate [Augmentin 500-125 mg Tab] 500 mg PO BID #14 tab Repaglinide [Prandin] 0.5 mg PO BID #60 tab Followup: Unknown,U [Primary Care Provider] -
[2022-05-12 16:36] VITALS: BP 94/47
[2022-05-12 16:40] VITALS: O2SAT 93
[2022-05-12] MEDS ORDERED: QUETIAPINE 25 MG TAB PO SCH (21:00)
== END 2022-05-12 17:05 | disposition home or self-care (01) | DRG 177 ==
LOC: ER 23:45 → ERHOLD 05-11 02:29 → 3RD-ICU 05-11 04:53
PROVIDERS: ADMIT Internal Medicine; ATTEND Internal Medicine
DX: U07.1 COVID-19 (principal); J18.9 Pneumonia, unspecified organism; G40.89 Other seizures; E11.649 Type 2 diabetes mellitus with hypoglycemia without coma; T38.3X5A Adverse effect of insulin and oral hypoglycemic [antidiabetic] drugs, initial encounter; R09.02 Hypoxemia; E11.40 Type 2 diabetes mellitus with diabetic neuropathy, unspecified; I10 Essential (primary) hypertension; K21.9 Gastro-esophageal reflux disease without esophagitis; H54.7 Unspecified visual loss; Z79.84 Long term (current) use of oral hypoglycemic drugs; Z79.899 Other long term (current) drug therapy
CPT/HCPCS: 36415; 71045; 71275; 80053; 81001; 81003; 81015; 82805; 82947; 84484; 85025; 87040; 87811; 96360; 96361; 96372; 99285; J0456; J1630; J1650; J2354; J3411; J7050; J7799; Q9967

== ENCOUNTER 2022-05-14 11:26 | Observation (INO) | payer OTHER ==
[2022-05-14] MEDS ORDERED: ACETAMINOPHEN 500 MG TAB ONE (11:53)
[2022-05-14] MEDS ORDERED: NA CHLORIDE 0.9% 1,000 ML ONE (11:53)
[2022-05-14] MEDS ORDERED: ONDANSETRON 4 MG/2 ML VIAL ONE (11:53)
[2022-05-14 12:22] LABS: Protime INR 1.23
[2022-05-14 12:28] LABS: Absolute Lymphocytes (CBC) 1.3 K/uL (0.7-4.9); Lymphocytes % 13.8 % (15.3-44.8); MCV 83.1 fL (80-100); MPV 8.5 fL (7.6-11.3)
[2022-05-14 12:34] LABS: Hematocrit 14.9 % (39.6-49.0)
--- NOTE | 2022-05-14 12:37 | RAD REPORT ---
EXAM DESCRIPTION: RAD - Chest Single View - 05/14/2022 12:25 pm CLINICAL HISTORY: SOB COMPARISON: Chest Single View dated 05/11/2022 FINDINGS: Lines: None. Lungs: Developing airspace disease in the medial aspect of the right lung base. Pleural: No significant pleural effusions or pneumothorax. Cardiac: The heart size is within normal limits. Mediastinum: Within normal limits. Bones: No acute fractures. Other: None IMPRESSION: Increasing opacities in the medial right lung base could represent pneumonia or pneumoni tis.
[2022-05-14 12:39] LABS: Bilirubin Total 0.3 mg/dL (0.2-1.0); Potassium 4.4 mmol/L (3.5-5.1); Protein, Total 4.6 g/dL (6.4-8.2); Troponin High Sensitivity 39.3 pg/mL (<58.9)
--- NOTE | 2022-05-14 14:43 | EDPHYS ---
Physician Documentation [facility] Name: Tj Lane Age: 87 yrs Sex: Male : 1935 Arrival Date: 05/14/2022 Time: 11:29 Bed 2 Private MD: ED Physician Genevieve Merino HPI: 05/14 11:40 This 87 yrs old Male presents to ER via EMS with complaints of Bloody Stools. sd2 11:40 87 yo M presents via EMS with CC of vomiting black this AM and prior to that, having an sd2 episode of black stools. States he does not believe he is on any blood thinners and has not had symptoms like this previously. Denies any abdominal pain. Recently diagnosed with COVID. Denies any significant respiratory complaints but was 88% on room air upon arrival improved on 3L NC. . Historical: - Allergies: 11:46 No Known Allergies; ss - Home Meds: 11:46 amlodipine 10 mg tab 1 tab once daily [Active]; glimepiride 2 mg Oral tab 1 tab once ss daily [Active]; lisinopril 20 mg Oral tab 1 tab once daily [Active]; - PMHx: 11:46 diabetes mellitus; Hypertensive disorder; ss - Immunization history:: Client reports receiving the 2nd dose of the Covid vaccine. - Social history:: Smoking status: Patient denies any tobacco usage or history of. ROS: 11:40 Constitutional: Negative for fever, chills, and weight loss, Eyes: Negative for injury, sd2 pain, redness, and discharge, Cardiovascular: Negative for chest pain, palpitations, and edema, Respiratory: Negative for shortness of breath, cough, wheezing. 11:40 : Negative for dysuria, frequency or hematuria. MS/Extremity: Negative for injury and deformity, Skin: Negative for injury, rash, and discoloration. 11:40 Abdomen/GI: Positive for nausea, vomiting, diarrhea, hematemesis, black/tarry stool. Exam: 11:40 Constitutional: This is a well developed, well nourished patient who is awake, alert, sd2 and in no acute distress. Head/Face: Normocephalic, atraumatic. Eyes: EOMI, normal conjunctiva bilaterally Chest/axilla: Normal chest wall appearance and motion. Nontender with no deformity. Cardiovascular: Regular rate and rhythm with a normal S1 and S2. No gallops, murmurs, or rubs. 2+ distal pulses. Respiratory: Lungs have equal breath sounds bilaterally, clear to auscultation and percussion. No rales, rhonchi or wheezes noted. No increased work of breathing, no retractions or nasal flaring. Abdomen/GI: Soft, non-tender, with normal bowel sounds. No guarding or rebound. No evidence of tenderness throughout. Male : Rectal exam performed with household appliance assembler RN at bedside. Mild sacral skin breakdown limited to epidermis only with normal rectal tone, no gross blood but black stool noted in rectal vault. Positive hemoccult. Skin: Warm, dry with normal turgor. Normal color with no rashes, no lesions, and no evidence of cellulitis. MS/ Extremity: Pulses equal, no cyanosis. Neurovascular intact. Full, normal range of motion. Ambulatory without difficulty. Psych: Awake, alert, with orientation to person, place and time. Behavior, mood, and affect are within normal limits. 12:09 ECG was reviewed by the Attending Physician. NSR, rate 83, no STEMI criteria, baseline sd2 artifact present Vital Signs: 11:30 BP 103 / 39; Pulse 85; Resp 19; Temp 99.2; Pulse Ox 89% on R/A; Weight 69.85 kg; Height hb 5 ft. 8 in. (172.72 cm); Pain 2/10; 13:03 BP 108 / 57; Pulse 92; Resp 15; Pulse Ox 99% on 2 lpm NC; hb 13:30 BP 95 / 44; Pulse 80; Resp 17; Pulse Ox 100% on 2 lpm NC; hb 14:19 BP 96 / 44; Pulse 77; Pulse Ox 99% on 2 lpm NC; ko1 14:51 BP 92 / 41; Pulse 80; Resp 15; Pulse Ox 100% on 2 lpm NC; hb 16:03 BP 81 / 38; Pulse 81; Resp 17; Pulse Ox 100% on 3 lpm NC; hb 17:00 BP 104 / 60; Pulse 82; Resp 16; Pulse Ox 99% 3 lpm ; hb 18:45 BP 104 / 44; Pulse 75; Resp 17; Pulse Ox 99% on 3 lpm NC; hb 19:13 BP 112 / 51; Pulse 74; Resp 18 S; Temp 98.2(TE); Pulse Ox 100% on R/A; as6 11:30 Body Mass Index 23.42 (69.85 kg, 172.72 cm) hb MDM: 11:30 Patient medically screened. sd2 11:40 Differential Diagnosis Gastritis, cholecystitis, pancreatitis, SBO, diverticulitis, sd2 kidney stone, appendicitis, UTI, dehydration, electrolyte abnormality among others. Data reviewed: vital signs, nurses notes, EMS record. 14:38 Data reviewed: lab test result(s), EKG, radiologic studies. Counseling: I had a sd2 detailed discussion with the patient and/or guardian regarding: the historical points, exam findings, and any diagnostic results supporting the discharge/admit diagnosis, lab results, radiology results, the need for further work-up and treatment in the hospital. ED course: Labs and imaging reviewed. Significant anemia present and 2u pRBCs ordered with patient and family consent given. COVID pneumonia also present. Discussed with patient and family options regarding transfer for GI services and further care. Family has declined anything invasive including transfer for GI/endoscopy/colonoscopy. They do not believe this would be the patient's wishes. His who is POA has signed to make him DNR and social work consulted for Hospice care which is being arranged. Pt to be admitted to hospital while hospice plan is arranged for safe discharge home.. 05/14 11:43 Order name: CBC with Diff; Complete Time: 12:37 sd2 05/14 11:43 Order name: CMP; Complete Time: 12:49 sd2 05/14 11:43 Order name: PT-INR; Complete Time: 12:37 sd2 05/14 11:43 Order name: Ptt, Activated; Complete Time: 12:37 sd2 05/14 11:43 Order name: Lipase; Complete Time: 12:49 sd2 05/14 11:43 Order name: Troponin High Sensitivity; Complete Time: 12:49 sd2 05/14 11:43 Order name: BNP; Complete Time: 12:49 sd2 05/14 11:43 Order name: XRAY Chest (1 view); Complete Time: 12:49 sd2 05/14 11:44 Order name: Type And Screen 05/14 11:44 Order name: SARS-COV-2 Antigen Rapid 1 05/14 13:03 Order name: Bb Add On 1 05/14 13:07 Order name: Packed RBC Leukored EDCO 05/14 14:06 Order name: ABO/RH no charge; Complete Time: 14:08 EDMS 05/14 11:43 Order name: EKG - Nurse/Tech; Complete Time: 11:54 sd2 05/14 12:10 Order name: Social Service Consult EDCO 05/14 13:15 Order name: Labs - recollect needed: recollect BB; Complete Time: 14:06 05/14 16:47 Order name: Regular EDMS Administered Medications: 12:19 Drug: NS 0.9% 1000 ml Route: IV; Rate: 1 bolus; Site: right antecubital; hb 20:39 Follow up: Response: No adverse reaction; IV Status: Completed infusion; IV Intake: as6 1000ml 12:19 Drug: Tylenol 1000 mg Route: PO; hb 20:39 Follow up: Response: No adverse reaction as6 12:19 Drug: Zofran (Ondansetron) 4 mg Route: IVP; Site: right antecubital; hb 20:39 Follow up: Response: No adverse reaction as6 Disposition Summary: 05/14/22 14:42 Hospitalization Ordered Hospitalization Status: Inpatient Admission sd2 Provider: Aurelia Park2 Location: Telemetry/MedSur (Inpatient) sd2 Condition: Stable sd2 Problem: new sd2 Symptoms: are unchanged sd2 Bed/Room Type: Standard sd2 Room Assignment: 222(05/14/22 19:43) dw Diagnosis - Gastrointestinal bleeding sd2 - Melena sd2 - Hematemesis sd2 - Severe anemia sd2 - Pneumonia secondary to COVID-19 infection sd2 - Acute respiratory failure with hypoxia secondary to COVID-19 sd2 Forms: - Medication Reconciliation Form sd2 - SBAR form sd2 Critical care time excluding procedures: 14:38 Critical care time: Bedside Care: 30 minutes, Consultation: 5 minutes, Family sd2 Intervention: 15 minutes. Total time: 50 minutes Signatures: Dispatcher [employer] EDCO Kim Rain RN RN dw Smirch, Shelby, RN RN ss Baxter, Heather, RN RN hb Dunlop, Stephanie, MD MD sd2 Mary Carmen Neumann RN RN ko1 Slawson, Ashby RN as6 Corrections: (The following items were deleted from the chart) 19:43 14:42 sd2 dw
--- NOTE | 2022-05-14 14:43 | ER ---
Nurse's Notes [facility] Name: jT Lane Age: 87 yrs Sex: Male : 1935 Arrival Date: 05/14/2022 Time: 11:29 Bed 2 Private MD: Diagnosis: Gastrointestinal bleeding;Melena;Hematemesis;Severe anemia;Pneumonia secondary to COVID-19 infection;Acute respiratory failure with hypoxia secondary to COVID-19 Presentation: 05/14 11:30 Chief complaint: EMS states: COVID +, family reports coffee ground emesis and dark hb tarry stools today. Coronavirus screen: Client presents with at least one sign or symptom that may indicate coronavirus-19. Standard/surgical mask placed on the client. Provider contacted for isolation considerations. Ebola Screen: No symptoms or risks identified at this time. Initial Sepsis Screen: Does the patient meet any 2 criteria? No. Patient's initial sepsis screen is negative. Does the patient have a suspected source of infection? No. Patient's initial sepsis screen is negative. Risk Assessment: Do you want to hurt yourself or someone else? Patient reports no desire to harm self or others. Onset of symptoms was May 14, 2022. 11:30 Method Of Arrival: EMS: [facility] hb 11:30 Acuity: DMITRY 2 hb Historical: - Allergies: 11:46 No Known Allergies; ss - Home Meds: 11:46 amlodipine 10 mg tab 1 tab once daily [Active]; glimepiride 2 mg Oral tab 1 tab once ss daily [Active]; lisinopril 20 mg Oral tab 1 tab once daily [Active]; - PMHx: 11:46 diabetes mellitus; Hypertensive disorder; ss - Immunization history:: Client reports receiving the 2nd dose of the Covid vaccine. - Social history:: Smoking status: Patient denies any tobacco usage or history of. Screenin:30 [facility] ED Fall Risk Assessment (Adult) History of falling in the last 3 months, ko1 including since admission No falls in past 3 months (0 pts) Confusion or Disorientation No (0 pts) Intoxicated or Sedated No (0 pts) Impaired Gait No (0 pts) Mobility Assist Device Used No (0 pt) Altered Elimination No (0 pt) Score/Fall Risk Level 0 - 2 = Low Risk Oriented to surroundings, Maintained a safe environment, Educated pt \T\ family on fall prevention, incl call for assistance when getting out of bed, Assessed \T\ reinforced patient's understanding of fall precautions, Provided non-skid footwear, Hourly rounding (assess needs \T\ fall precautionary measures) done, Used ambulatory aids as needed (educated on \T\ assisted with), Used gait belt as appropriate. Abuse screen: Denies threats or abuse. Denies injuries from another. Nutritional screening: No deficits noted. Tuberculosis screening: No symptoms or risk factors identified. Assessment: 11:30 Pain: Complains of pain in generalized. Neuro: No deficits noted. Cardiovascular: No ko1 deficits noted. Respiratory: No deficits noted. GI: Reports lower abdominal pain. : No deficits noted. EENT: No deficits noted. Derm: No deficits noted. Derm: No deficits noted. Wound noted heel of left foot. Musculoskeletal: No deficits noted. 12:30 Reassessment: Patient appears in no apparent distress at this time. No changes from hb previously documented assessment. Patient and/or family updated on plan of care and expected duration. Pain level reassessed. 13:33 Reassessment: Patient appears in no apparent distress at this time. No changes from hb previously documented assessment. Patient and/or family updated on plan of care and expected duration. Pain level reassessed. 14:30 Reassessment: Admission ordered, awaiting floor orders and room assignment. Blood hb transfusion pending. 14:52 Reassessment: Service Agent at bedside with family. hb 15:00 Reassessment: First unit PRBCs started, see transfusion record. Son remains at bedside. hb Awaiting room assignment at this time. 16:04 Reassessment: Patient appears in no apparent distress at this time. No changes from hb previously documented assessment. Patient and/or family updated on plan of care and expected duration. Pain level reassessed. 17:01 Reassessment: Patient appears in no apparent distress at this time. No changes from hb previously documented assessment. Patient and/or family updated on plan of care and expected duration. Pain level reassessed. 18:45 Reassessment: Patient appears in no apparent distress at this time. No changes from hb previously documented assessment. Patient and/or family updated on plan of care and expected duration. Pain level reassessed. 19:13 General: Appears in no apparent distress. Neuro: Level of Consciousness is awake, as6 alert, confused, Oriented to person. Vital Signs: 11:30 BP 103 / 39; Pulse 85; Resp 19; Temp 99.2; Pulse Ox 89% on R/A; Weight 69.85 kg; Height hb 5 ft. 8 in. (172.72 cm); Pain 2/10; 13:03 BP 108 / 57; Pulse 92; Resp 15; Pulse Ox 99% on 2 lpm NC; hb 13:30 BP 95 / 44; Pulse 80; Resp 17; Pulse Ox 100% on 2 lpm NC; hb 14:19 BP 96 / 44; Pulse 77; Pulse Ox 99% on 2 lpm NC; ko1 14:51 BP 92 / 41; Pulse 80; Resp 15; Pulse Ox 100% on 2 lpm NC; hb 16:03 BP 81 / 38; Pulse 81; Resp 17; Pulse Ox 100% on 3 lpm NC; hb 17:00 BP 104 / 60; Pulse 82; Resp 16; Pulse Ox 99% 3 lpm ; hb 18:45 BP 104 / 44; Pulse 75; Resp 17; Pulse Ox 99% on 3 lpm NC; hb 19:13 BP 112 / 51; Pulse 74; Resp 18 S; Temp 98.2(TE); Pulse Ox 100% on R/A; as6 11:30 Body Mass Index 23.42 (69.85 kg, 172.72 cm) hb ED Course: 11:29 Patient arrived in ED. hb 11:30 Genevieve Merino MD is Attending Physician. sd2 11:30 Patient has correct armband on for positive identification. Placed in gown. Bed in low ko1 position. Call light in reach. Side rails up X2. Adult w/ patient. alarm security or surveillance monitor on. Pulse ox on. 11:30 No provider procedures requiring assistance completed. Maintain EMS IV. Dressing ko1 intact. Good blood return noted. Site clean \T\ dry. Gauge \T\ site: 20 g. 11:31 Triage completed. hb 11:32 Arm band placed on. hb 12:27 XRAY Chest (1 view) In Process Unspecified. EDMS 13:03 Sharon Garcia, RN is Primary Nurse. hb 13:19 Mary Carmen Neumann, OSWALDO is Primary Nurse. ko1 14:41 Aurelia Park MD is Hospitalizing Provider. sd2 20:38 Patient admitted, IV remains in place. as6 Administered Medications: 12:19 Drug: NS 0.9% 1000 ml Route: IV; Rate: 1 bolus; Site: right antecubital; hb 20:39 Follow up: Response: No adverse reaction; IV Status: Completed infusion; IV Intake: as6 1000ml 12:19 Drug: Tylenol 1000 mg Route: PO; hb 20:39 Follow up: Response: No adverse reaction as6 12:19 Drug: Zofran (Ondansetron) 4 mg Route: IVP; Site: right antecubital; hb 20:39 Follow up: Response: No adverse reaction as6 Medication: 11:30 VIS not applicable for this client. ko1 Intake: 20:39 IV: 1000ml; Total: 1000ml. as6 Outcome: 14:42 Decision to Hospitalize by Provider. sd2 20:38 Admitted to Med/surg via stretcher, room 222, with oxygen, with chart. as6 20:38 Condition: stable 20:38 Instructed on the need for admit. 20:56 Patient left the ED. as6 Signatures: Dispatcher [employer] EDMS Amairani Taylor RN RN ss Sharon Garcia RN RN Jack Acevedo RN RN as6 Genevieve Merino MD MD sd2 Mary Carmen Neumann RN RN ko1 Corrections: (The following items were deleted from the chart) 14:52 13:30 BP 95 / 44; Pulse 80bpm; Resp 17bpm; Pulse Ox 100% RA; hb hb
[2022-05-14] MEDS ORDERED: NA CHLORIDE 0.9% 100 ML ONE (14:49)
[2022-05-14] MEDS ORDERED: ONDANSETRON 4 MG/2 ML VIAL IV PRN (16:42)
[2022-05-14] MEDS ORDERED: MORPHINE 2 MG/ML SYR IV PRN (16:42)
[2022-05-14] MEDS ORDERED: NA CHLORIDE 0.9% 100 ML IV ONE (17:33)
[2022-05-14 21:42] VITALS: BMI 23.3
[2022-05-15] MEDS ORDERED: LORazepam 2 MG/ML VIAL IV ONE (07:47)
[2022-05-15 08:45] VITALS: BP 109/48; TEMP 97.7
[2022-05-15 09:07] VITALS: O2SAT 95
--- NOTE | 2022-05-15 09:16 | P.DS ---
Admission Date: 05/14/22 Discharge Date: 05/15/22 Disposition: HOSPICE-HOME Discharge Condition: SERIOUS Hospital Course: MR. GERBER CAME WITH A NEW PROBLEM JUST A FEW DAYS AFTER DISCHARGE. HE WAS HERE WITH COVID AND PNEUMONIA IN ADDITION TO HYPOGLYCEMIA. NOW HE CAME WITH LARGE MELANOTIC STOOL AND HG DROPPED TO 5 GM. FAMILY HAS RIGHTLY DECIDED TO GET HIM ON HOSPICE AND HE HAS ALL EQUIPMENT DELIVERED AT HOME. HE IS READY FOR HOSPICE, DNR AND AMBULANCE WILL TAKE HIM. AT THIS AGE HE DID NOT WANT ANY AGGRESSIVE MEASRUES. HE IS SEMICOMATOSE NOW WITH CURRENT CONDITION. Vital Signs/Physical Exam: Temp Pulse Resp BP Pulse Ox 97.7 F 82 18 109/48 L 95 05/15/22 08:00 05/15/22 08:00 05/15/22 08:00 05/15/22 08:00 05/15/22 08:00 Laboratory Data at Discharge: WBC 9.20 K/uL (4.3-10.9) 05/14/22 12:03 Hgb 5.1 g/dL (13.6-17.9) L* 05/14/22 12:03 Hct 14.9 % (39.6-49.0) L* 05/14/22 12:03 Plt Count 153 K/uL (152-406) 05/14/22 12:03 PT 13.5 SECONDS (9.5-12.5) H 05/14/22 12:03 INR 1.23 05/14/22 12:03 APTT 28.8 SECONDS (24.3-36.9) 05/14/22 12:03 Sodium 138 mmol/L (136-145) 05/14/22 12:03 Potassium 4.4 mmol/L (3.5-5.1) 05/14/22 12:03 BUN 141 mg/dL (7-18) H 05/14/22 12:03 Creatinine 2.36 mg/dL (0.70-1.30) H 05/14/22 12:03 Glucose 156 mg/dL (74-106) H 05/14/22 12:03 Total Bilirubin 0.3 mg/dL (0.2-1.0) 05/14/22 12:03 AST 62 U/L (15-37) H 05/14/22 12:03 ALT 34 U/L (16-61) 05/14/22 12:03 Alkaline Phosphatase 42 U/L (45-117) L 05/14/22 12:03 Lipase 117 U/L (73-393) 05/14/22 12:03 Followup: NONE,NONE [Primary Care Provider] -
--- NOTE | 2022-05-15 10:52 | P.HP ---
Certification for Inpatient Patient admitted to: Observation With expected LOS: <2 Midnights Patient will require the following post-hospital care: Hospice Practitioner: I am a practitioner with admitting privileges, knowledge of patient current condition, hospital course, and medical plan of care. Services: Services provided to patient in accordance with Admission requirements found in Title 42 Section 412.3 of the Code of Federal Regulations Patient History Date of Service: 05/14/22 Reason for admission: GI bleeding History of Present Illness: She is an 87-year-old gentleman came to the hospital with melanotic stools. Patient was lightheaded and confused. Patient was seen in the emergency room and hemoglobin was less than 6. Patient was evaluated by the emergency room physician and she spoke to the family and they decided that they did not want any aggressive measures. They decided to pursue hospice care. Patient has had advanced dementia for quite a while. His quality life is very poor. His dementia has been fairly advanced and he has been declining quite rapidly. The emergency room physician order 2 units of packed red blood cells. I spoke to the family and they do not want any further transfusions. We will go ahead and complete the 2 units and then afterwards we will proceed with hospice care. Allergies No Known Allergies Allergy (Verified 08/23/19 12:43) - Past Medical/Surgical History Diabetic: Yes -: Neuropathy -: DM -: HTN -: GERD -: Bilateral Blindness -: left heel debridement - Family History Father Medical History: GI disease Family History: Reviewed- Non-Contributory - Social History Smoking Status: Unknown if ever smoked Alcohol use: No CD- Drugs: No Caffeine use: Yes Place of Residence: Home Review of Systems 10-point ROS is otherwise unremarkable Physical Examination - Vital Signs Temperature: 97.7 F Blood Pressure: 109/48 Pulse: 82 Respirations: 18 Pulse Ox (%): 95 - Physical Exam General: Alert, In no apparent distress, Demented HEENT: Atraumatic, PERRLA, Mucous membr. moist/pink, EOMI, Sclerae nonicteric Neck: Supple, 2+ carotid pulse no bruit, No LAD, Without JVD or thyroid abnormality Respiratory: Clear to auscultation bilaterally, Normal air movement Cardiovascular: Regular rate/rhythm, Normal S1 S2, No murmurs Gastrointestinal: Normal bowel sounds, Soft and benign, Non-distended, Tender ness Musculoskeletal: No clubbing, No swelling, No tenderness Integumentary: No rashes Neurological: Normal tone, Sensation intact, Cranial nerves 3-12 intact, Abnormal strength Lymphatics: No axilla or inguinal lymphadenopathy - Studies Laboratory Data (last 24 hrs) 05/14/22 12:03: PT 13.5 H, INR 1.23, APTT 28.8 05/14/22 12:03: Sodium 138, Potassium 4.4, BUN 141 H, Creatinine 2.36 H, Glucose 156 H, Total Bilirubin 0.3, AST 62 H, ALT 34, Alkaline Phosphatase 42 L, Lipase 117 05/14/22 12:03: WBC 9.20, Hgb 5.1 L*, Hct 14.9 L*, Plt Count 153 Assessment & Plan - Problems (Diagnosis) (1) GI bleeding Current Visit: Yes Status: Acute (2) Diabetes Current Visit: No Status: Chronic (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 Patient continues to have melanotic stools. Family does not want any interventions at this time. Arrangements for hospice is completed. Continue wuith pain medication and Ativan as needed. Hospice care at this time. Discharge Plan: Other Plan to discharge in: 24 Hours - Advance Directives Does patient have a Living Will: No Does patient have a Durable POA for Healthcare: No - Code Status/Comfort Care Code Status Assessed: Yes Comfort Measures: Hospice Care Critical Care: No Time Spent Managing PTS Care (In Minutes): 45
== END 2022-05-15 12:23 | disposition hospice, home (50) ==
LOC: ER 11:26 → ERHOLD 16:42 → 2ND 20:09
PROVIDERS: ADMIT Hospitalist; ATTEND Internal Medicine
PROC: 30233N1 Transfusion of Nonautologous Red Blood Cells into Peripheral Vein, Percutaneous Approach (ICD-10-PCS; principal; 2022-05-14)
DX: K92.2 Gastrointestinal hemorrhage, unspecified (principal); F03.C0 Unspecified dementia, severe, without behavioral disturbance, psychotic disturbance, mood disturbance, and anxiety; E11.9 Type 2 diabetes mellitus without complications; E11.621 Type 2 diabetes mellitus with foot ulcer; L97.421 Non-pressure chronic ulcer of left heel and midfoot limited to breakdown of skin; I89.0 Lymphedema, not elsewhere classified
CPT/HCPCS: 96361; 85025; 36415; 86900; 86850; 85610; 86901; 85730; 84484; 83690; 80053; 83880; 71045; 96374; 99285; 36430; J2270; P9016 ×2; J7030; J2405